=== PATIENT | male | born 1940 | race Caucasian/White ===

== ENCOUNTER 2021-12-13 01:01 | Inpatient (IN) | payer OTHER, SELFPAY ==
--- OUTSIDE RECORDS SUMMARY | 2021-12-13 01:04 | XMS REPORT | Continuity of Care Document ---
:1940 Author Organization [facility] t Address [address] [place] [address] Care Team Providers Name Role Phone GC_BAHC_Todd_J Attending Clinician Unavailable Yan_Qing Attending Clinician Unavailable AMBREEN_FARHANA Attending Clinician Unavailable GC_BAHVikki_Todd_J Admitting Clinician Unavailable Yan_W Admitting Clinician Unavailable AMBREEN_DENTONA Admitting Clinician Unavailable Payers Payer Name Policy Type Policy Number Effective Date Expiration Date [employer] - [id number] 2021 MEDICA (MEDICARE 00:00:00 REPLACEMENT HMO) [facility] [id number] (MEDICARE REPLACEMENT/[employer] - PPO) Problems This patient has no known problems. Allergies, Adverse Reactions, Alerts This patient has no known allergies or adverse reactions. Medications This patient has no known medications. Procedures This patient has no known procedures. Encounters Start End Encounter Admission Attending Care Care Encounter Source Date/Time Date/Time Type Type Clinicians Facility Department ID 2021-12-07 2021-12-07 Outpatient GC_BAHC_Tod PRIV PRIV [id number] [facility] 00:00:00 00:00:00 d_J [id number] Medica l 2021-11-26 2021-11-26 [place] [facility] [id number] 10:05:00 10:05:00 [place] [address] [facility] 2021-11-16 2021-11-16 Outpatient Yan_W MMG MMG [id number] [place] 00:00:00 00:00:00 [facility] 2021-10-05 2021-10-05 Outpatient AMBREEN_KALEE IADELFINA [facility] [id number] [place] 00:00:00 00:00:00 [place] 0729 [facility] h Program Results This patient has no known results.
[2021-12-13] MEDS ORDERED: NA CHLORIDE 0.9% 1,000 ML ONE (01:15)
[2021-12-13 02:10] LABS: Absolute Lymphocytes (CBC) 1.1 K/uL (0.7-4.9); Hematocrit 32.7 % (39.6-49.0); MCV 88.6 fL (80-100); MPV 8.6 fL (7.6-11.3)
[2021-12-13 02:27] LABS: Magnesium 2.5 mg/dL (1.8-2.4); Potassium 3.6 mmol/L (3.5-5.1); Troponin High Sensitivity 20.5 pg/mL (<58.9)
--- NOTE | 2021-12-13 03:40 | EDPHYS ---
Physician Documentation [facility] Name: Rodolfo Olivo Age: 81 yrs Sex: Male : 1940 Arrival Date: 12/13/2021 Time: 01:06 Bed 2 Private MD: ED Physician Ramirez Boss HPI: 12/13 05:00 This 81 yrs old Male presents to ER via EMS with complaints of Shortness of breath. 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 Patient denies chest pain at this time. Patient endorses right jaw pain. Patient states his pain is a 10/10 described as throbbing. Patient denies fevers or chills. Historical: - Allergies: 01:26 cefepime; vc1 01:26 PENICILLINS; vc1 - PMHx: 01:26 carcinoma in situ of larynx; osteoarthritis; vc1 - PSHx: 01:26 G tube; tracheostomy; vc1 - Immunization history:: Adult Immunizations up to date. - Social history:: Smoking status: unknown. ROS: 05:00 Constitutional: Negative for fever, and chills. ENT: Negative for injury, pain, and ms3 discharge, Neck: Negative for injury, pain, and swelling, Cardiovascular: Negative for chest pain, and palpitations. Abdomen/GI: Negative for abdominal pain, nausea, vomiting, diarrhea, and constipation, MS/Extremity: Negative for injury and deformity, Skin: Negative for injury, rash, and discoloration, Psych: Negative for depression, anxiety, suicide ideation, homicidal ideation, and hallucinations. 05:00 Respiratory: Positive for shortness of breath. 05:00 All other systems are negative. Exam: 01:50 ECG was reviewed by the Attending Physician. ms3 05:00 Constitutional: This is a well developed, well nourished patient who is awake, alert, ms3 and in no acute distress. Head/Face: Normocephalic, atraumatic. Neck: Trachea midline, no cervical lymphadenopathy. Supple, full range of motion without nuchal rigidity, or vertebral point tenderness. No Meningismus. Chest/axilla: Normal chest wall appearance and motion. Nontender with no deformity. Cardiovascular: Regular rate and rhythm with a normal S1 and S2. No gallops, murmurs, or rubs. Normal PMI, no JVD. No pulse deficits. Respiratory: Lungs have equal breath sounds bilaterally, clear to auscultation and percussion. No rales, rhonchi or wheezes noted. No increased work of breathing, no retractions or nasal flaring. Abdomen/GI: Soft, non-tender, with normal bowel sounds. No distension or tympany. No guarding or rebound. No evidence of tenderness throughout. Skin: Warm, dry with normal turgor. Normal color with no rashes, no lesions, and no evidence of cellulitis. 05:00 Abdomen/GI: PEG in place without surrounding erythema or drainage. 05:00 ENT: Trach in place. ms3 Vital Signs: 01:23 BP 125 / 109; Pulse 107; Resp 15; Temp 98.4; Pulse Ox 100% ; Weight 91.17 kg; Height 71 vc1 in. (180.34 cm); 04:17 BP 148 / 106; Pulse 114; Resp 16; Pulse Ox 100% on R/A; vc1 07:28 BP 110 / 58; Pulse 110; Resp 22; Pulse Ox 100% ; mb9 07:50 BP 135 / 88; Pulse 134; Resp 26; Pulse Ox 100% ; mb9 01:23 Body Mass Index 28.03 (91.17 kg, 180.34 cm) vc1 07:28 Oxygen via tracheostomy mb9 07:50 100% via tracheostomy with humidified oxygen mb9 MDM: 01:13 Patient medically screened. ms3 05:00 Differential Diagnosis KS vs PNA vs COVID vs CHF. Data reviewed: vital signs, nurses ms3 notes. Data interpreted: cardiac monitor: rate is 108 beats/min, rhythm is atrial fibrillation, with no ectopy, Interpretation: atrial fibrillation, tachycardia. Counseling: I had a detailed discussion with the patient and/or guardian regarding: the historical points, exam findings, and any diagnostic results supporting the discharge/admit diagnosis, lab results, radiology results, the need for further work-up and treatment in the hospital. ED course: Case discussed with FAITH Peter, and she accepts patient on behalf of Dr Varma. All questions answered. 12/13 01:14 Order name: Basic Metabolic Panel ms3 12/13 01:14 Order name: CBC with Diff ms3 12/13 01:14 Order name: Magnesium ms3 12/13 01:14 Order name: NT PRO-BNP ms3 12/13 01:14 Order name: Troponin HS ms3 12/13 02:12 Order name: CBC with Automated Diff; Complete Time: 02:45 EDMS 12/13 02:28 Order name: Basic Metabolic Panel; Complete Time: 02:45 EDMS 12/13 02:28 Order name: Troponin High Sensitivity; Complete Time: 02:45 EDMS 12/13 02:28 Order name: NT PRO-BNP; Complete Time: 02:45 EDMS 12/13 02:28 Order name: Magnesium; Complete Time: 02:45 EDMS 12/13 03:05 Order name: SARS-COV-2 RT PCR (Document "Date of Onset" if Symptomatic) vc1 12/13 03:05 Order name: COVID-19 SARS RT PCR (Document "Date of Onset" if Symptomatic) bb 12/13 04:42 Order name: SARS-COV-2 RT PCR; Complete Time: 06:39 EDMS 12/13 07:30 Order name: Glucose, Ancillary Testing EDMS 12/13 01:14 Order name: XRAY Chest (1 view) ms3 12/13 01:14 Order name: EKG; Complete Time: 01:15 ms3 12/13 01:14 Order name: Cardiac monitoring; Complete Time: 01:40 ms3 12/13 01:14 Order name: EKG - Nurse/Tech; Complete Time: 02:01 ms3 12/13 01:14 Order name: IV Saline Lock; Complete Time: 01:40 ms3 12/13 01:14 Order name: Labs collected and sent; Complete Time: 01:40 ms3 12/13 01:14 Order name: O2 Per Protocol; Complete Time: 01:39 ms3 12/13 01:14 Order name: O2 Sat Monitoring; Complete Time: 01:39 ms3 12/13 06:48 Order name: XRAY Chest (1 view) vc1 12/13 08:28 Order name: RAD EDMS EC:50 Rate is 111 beats/min. Rhythm is irregularly irregular. QRS [place] is Normal. Clinical ms3 impression: A fib with rvr. Interpreted by me. Reviewed by me. Administered Medications: 01:39 Drug: NS 0.9% 1000 ml Route: IV; Rate: 1000 ml; Site: left antecubital; bb 03:58 Drug: Ativan (LORazepam) 0.5 mg Route: IVP; Site: left antecubital; vc1 08:00 Drug: fentaNYL (PF) 25 mcg Route: IVP; Site: right upper arm; mb9 08:04 Follow up: Response: Anxiety decreased mb9 08:24 Not Given (Physician Discretion): amiodarone 900 mg, D5W 500 ml IVPB at 1 mg/min mb9 continuous; for 6 hrs, then change to 0.5 mg/min Disposition Summary: 12/13/21 03:40 Hospitalization Ordered Hospitalization Status: Inpatient Admission ms3 Provider: Rick Varma ms3 Condition: Stable ms3 Problem: new ms3 Symptoms: are unchanged ms3 Bed/Room Type: Standard ms3 Location: Intensive Care Unit(12/13/21 06:54) eb1 Room Assignment: -(12/13/21 06:54) eb Diagnosis - Heart failure, unspecified ms3 - Tachycardia, unspecified ms3 - Anemia, unspecified ms3 - Unspecified atrial fibrillation ms3 Forms: - Medication Reconciliation Form ms3 - SBAR form ms3 Signatures: Dispatcher [employer] EDLuciana Rios RN RN Priscilla Hope RN RN eb1 Ramirez Boss DO DO ms3 Danae Mcmahon RN RN vc1 Nirmala Fitzgerald PAWildaC PABrandon sb4 Glory Dent RN RN mb9 Corrections: (The following items were deleted from the chart) 03:55 03:40 Telemetry/MedSurg (Inpatient) ms3 eb1 03:55 03:40 ms3 eb1 06:54 03:55 [facility] ER HOLD eb1 eb1 06:54 03:55 ERHOLD- eb1 eb1
--- NOTE | 2021-12-13 03:40 | ER ---
Nurse's Notes [facility] Name: Rodolfo Olivo Age: 81 yrs Sex: Male : 1940 Arrival Date: 12/13/2021 Time: : Bed 2 Private MD: Diagnosis: Heart failure, unspecified;Tachycardia, unspecified;Anemia, unspecified;Unspecified atrial fibrillation Presentation: 12/13 01:23 Chief complaint: EMS states: "We were called out for SOB when we arrived they said no vc1 he had right sided jaw discomfort.". Coronavirus screen: Vaccine status: At this time, the client does not indicate any symptoms associated with coronavirus-19. Ebola Screen: No symptoms or risks identified at this time. Initial Sepsis Screen: Does the patient meet any 2 criteria? HR > 90 bpm. No. Patient's initial sepsis screen is negative. Does the patient have a suspected source of infection? No. Patient's initial sepsis screen is negative. Risk Assessment: Do you want to hurt yourself or someone else? Patient reports no desire to harm self or others. Onset of symptoms was December 13, 2021 at 00:25. 01:23 Method Of Arrival: EMS: [facility] vc1 01:23 Acuity: NARCISO 3 vc1 Triage Assessment: 01:26 General: Appears in no apparent distress. uncomfortable, Behavior is cooperative. Pain: vc1 Denies pain. EENT: Oral mucosa is dry. Poor dentition noted. Neuro: Level of Consciousness is awake, alert, obeys commands, Oriented to person, place, time, situation, Appropriate for age. Cardiovascular: Patient's skin is warm and dry. Respiratory: Reports cough that is labored breathing Airway is patent via trache Respiratory effort is even, unlabored, Respiratory pattern is regular, symmetrical, Sputum is thick, clear blood streaked, the patient has mild shortness of breath. GI: PEG tube in place, clamped. Site clean. : No deficits noted. Derm: No deficits noted. Musculoskeletal: No deficits noted. Historical: - Allergies: : cefepime; vc1 01:26 PENICILLINS; vc1 - PMHx: :26 carcinoma in situ of larynx; osteoarthritis; vc1 - PSHx: :26 G tube; tracheostomy; vc1 - Immunization history:: Adult Immunizations up to date. - Social history:: Smoking status: unknown. Screenin:28 Abuse screen: Denies threats or abuse. Nutritional screening: No deficits noted. vc1 Tuberculosis screening: No symptoms or risk factors identified. Fall Risk None identified. Assessment: 01:30 Reassessment: See triage assessment. vc1 04:00 Reassessment: Patient and/or family updated on plan of care and expected duration. Pain vc1 level reassessed. Pt stating he can't breath, oxygen saturation 100%, RT called to provide suctioning. Patient states symptoms have not improved. 07:00 General: Appears comfortable, Behavior is Difficult to arouse . mb9 07:00 Pain: Unable to use pain scale. Does not appear to understand pain scale. Neuro: Level mb9 of Consciousness is Opens eyes to painful stimuli. Cardiovascular: Heart tones S1 S2 present Rhythm is atrial fibrillation with rapid ventricular response. Respiratory: Airway via trache Trachea midline Respiratory effort is labored, Respiratory pattern is tachypnea Breath sounds are coarse bilaterally. GI: Abdomen is round PEG tube in place, clamped. : No signs and/or symptoms were reported regarding the genitourinary system. EENT: Oral mucosa is dry. Tongue is dry and swollen. Derm: Skin Skin is Skin is pink, warm \\T\\ dry. Wound noted right foot and left foot Other: Dressing noted to wounds on 12/11/21 Decubitus located on right and left buttocks. Right is stage II and left is stage I. Musculoskeletal: Range of motion: intact in all extremities. 07:26 Reassessment: Dr. Varma at bedside. Verbal order to hold amiodarone until he consults mb9 cardiology.. 07:38 Reassessment: Report given to admitting nurse, Piedad. . mb9 07:50 Reassessment: Pt now awake and unable to follow commands. Nonverbal, agitated, and mb9 attempting to get out of bed. Dr. Varma notified. Dr. Varma at bedside. RT at bedside suctioning pt. . Vital Signs: 01:23 BP 125 / 109; Pulse 107; Resp 15; Temp 98.4; Pulse Ox 100% ; Weight 91.17 kg; Height 71 vc1 in. (180.34 cm); 04:17 BP 148 / 106; Pulse 114; Resp 16; Pulse Ox 100% on R/A; vc1 07:28 BP 110 / 58; Pulse 110; Resp 22; Pulse Ox 100% ; mb9 07:50 BP 135 / 88; Pulse 134; Resp 26; Pulse Ox 100% ; mb9 01:23 Body Mass Index 28.03 (91.17 kg, 180.34 cm) vc1 07:28 Oxygen via tracheostomy mb9 07:50 100% via tracheostomy with humidified oxygen mb9 ED Course: 01:06 Patient arrived in ED. bb 01:06 Ramirez Boss DO is Attending Physician. ms3 01:23 Danae Mcmahon RN is Primary Nurse. vc1 01:26 Triage completed. vc1 01:28 Arm band placed on left wrist. vc1 01:28 Patient has correct armband on for positive identification. Bed in low position. Call vc1 light in reach. Side rails up X2. Client placed on continuous cardiac and pulse oximetry monitoring. NIBP monitoring applied. 01:30 Initial lab(s) drawn, by ia, sent to lab. Inserted saline lock: 18 gauge in left bb antecubital area, using aseptic technique. Blood collected. 03:39 Rick Varma MD is Hospitalizing Provider. ms3 05:41 Accessed peripheral vein via ultrasound, utilizing dynamic ultrasound technique as6 powerglide midline 18g 10 cm to right upper arm using hospital protocol with good blood return, flushes easily using Clean \\T\\ dry. Dressing intact. Good blood return. Flushes easily. 07:14 Report received from JASVIR Fink. mb9 07:48 Primary Nurse role handed off by Danae Mcmahon RN jl7 07:55 No provider procedures requiring assistance completed. mb9 07:55 Patient admitted, IV remains in place. mb9 08:22 Glory Dent RN is Primary Nurse. mb9 Administered Medications: 01:39 Drug: NS 0.9% 1000 ml Route: IV; Rate: 1000 ml; Site: left antecubital; bb 03:58 Drug: Ativan (LORazepam) 0.5 mg Route: IVP; Site: left antecubital; vc1 08:00 Drug: fentaNYL (PF) 25 mcg Route: IVP; Site: right upper arm; mb9 08:04 Follow up: Response: Anxiety decreased mb9 08:24 Not Given (Physician Discretion): amiodarone 900 mg, D5W 500 ml IVPB at 1 mg/min mb9 continuous; for 6 hrs, then change to 0.5 mg/min Medication: 01:28 VIS not applicable for this client. vc1 Outcome: 03:40 Decision to Hospitalize by Provider. ms3 07:50 Admitted to ICU accompanied by nurse, via stretcher, with oxygen, on monitor, with mb9 chart, Report called to JASVIR Herbert 07:50 Condition: stable 07:50 Instructed on the need for admit. 08:38 Patient left the ED. mb9 Signatures: Luciana Saldana, RN RN bb Junaid Prado RN RN jl7 Ramirez Boss, DO DO ms3 Wally Alba, RN RN as6 Danae Mcmahon RN RN vc1 Glory Dent, RN RN mb9
[2021-12-13] MEDS ORDERED: LORazepam 2 MG/ML VIAL ONE ×2 (03:54→05:48)
[2021-12-13] MEDS ORDERED: ALBUTEROL 2.5 MG/3 ML NEB SOL ONE (04:08)
[2021-12-13] MEDS ORDERED: IPRATROPIUM BROM 0.5MG/2.5ML ONE (04:08)
--- NOTE | 2021-12-13 04:10 | P.HP ---
Certification for Inpatient Patient admitted to: Inpatient With expected LOS: >2 Midnights Patient will require the following post-hospital care: None Practitioner: I am a practitioner with admitting privileges, knowledge of patient current condition, hospital course, and medical plan of care. 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 Patient was seen in this ED earlier this evening for a similar problem, was deep suctioned by RT, improved, and discharged back to [facility]. He comes back tonight with continuing shortness of breath. He is saturating appropriately upon arrival, non tachypneic. EKG shows afib RVR. BNP 5000. Chest xray negative. He was given 1L fluid and 0.5 mg ativan. ED provider wishes to admit patient for further management. Allergies cefepime Allergy (Verified 12/13/21 04:39) Anaphylaxis Penicillins Allergy (Verified 12/13/21 04:39) Anaphylaxis Home medications list reviewed: Yes - Past Medical/Surgical History Diabetic: No -: Laryngeal Mass -: Insulin Dependent Type 2 Diabetes -: Hypertension -: Congestive Heart Failure -: Atrial Fibrillation -: G Tube -: Tracheostomy Psychosocial/ Personal History: Patient lives at [facility]. - Family History Family History: Reviewed- Non-Contributory - Social History Smoking Status: Unknown if ever smoked Alcohol use: No CD- Drugs: No Caffeine use: No Place of Residence: Shelter Review of Systems Respiratory: Shortness of Breath, Sputum Physical Examination - Physical Exam General: Alert, In no apparent distress, Mild distress HEENT: PERRLA, EOMI, Sclerae nonicteric Neck: Supple, Other (Tracheostomy) Respiratory: Clear to auscultation bilaterally, Normal air movement Cardiovascular: Regular rate/rhythm, Normal S1 S2 Gastrointestinal: Normal bowel sounds, No tenderness Musculoskeletal: No tenderness Integumentary: No rashes Neurological: Normal strength at 5/5 x4 extr, Normal tone, Sensation intact - Studies Laboratory Data (last 24 hrs) 12/13/21 01:30: WBC 10.80, Hgb 10.9 L, Hct 32.7 L, Plt Count 351 12/13/21 01:30: Sodium 137, Potassium 3.6, BUN 28 H, Creatinine 1.27, Glucose 194 H, Magnesium 2.5 H Assessment and Plan - Problems (Diagnosis) (1) Respiratory distress Current Visit: Yes Status: Acute (2) Congestive heart failure Current Visit: Yes Status: Chronic Qualifiers: Heart failure type: unspecified Heart failure chronicity: acute on chronic Qualified Code(s): I50.9 - Heart failure, unspecified (3) Type 2 diabetes mellitus Current Visit: Yes Status: Chronic Qualifiers: Diabetes mellitus senior living insulin use: with senior living use Diabetes mellitus complication status: with hyperglycemia Qualified Code(s): E11.65 - Type 2 diabetes mellitus with hyperglycemia; Z79.4 - exterminator helper termite (current) use of insulin (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 He is very anxious. Ativan PRN -Going in and out of afib RVR. IV metoprolol given in ED -Pulmonology consult -ACHS accu checks with mild sliding scale insulin -Resume home diet via G tube -Echocardiogram ordered -Monitor and replete electrolytes per protocol -Reconcile and continue home medications -Home eliquis for VTE prophylaxis -Full code Discharge Plan: Shelter Plan to discharge in: Greater than 2 days - Advance Directives Does patient have a Living Will: No Does patient have a Durable POA for Healthcare: No - Code Status/Comfort Care Code Status Assessed: Yes (Full) Critical Care: No Time Spent Managing Pts Care (In Minutes): 50
[2021-12-13] MEDS ORDERED: METOPROLOL TARTRATE 5 MG/5 ML INJ IV STA ×3 (04:31→06:59)
[2021-12-13] MEDS ORDERED: ALBUTEROL 2.5 MG/3 ML NEB SOL NEB PRN ×2 (04:40→15:00)
[2021-12-13] MEDS ORDERED: ONDANSETRON 4 MG/2 ML VIAL IV PRN (04:40)
[2021-12-13] MEDS ORDERED: METOPROLOL TARTRATE 5 MG/5 ML INJ IV ONE ×2 (04:47→06:55)
[2021-12-13] MEDS: LORazepam 2 MG/ML VIAL IV PRN ×2 (04:58→06:03)
[2021-12-13 06:05] VITALS: BMI 28.0
[2021-12-13] MEDS ORDERED: AMIODARONE IN DEXTROSE,ISO-OSM 360 MG/200 ML BAG IV ONE (07:21)
[2021-12-13] MEDS ORDERED: FENTANYL CITR 100 MCG/2 ML ONE (07:58)
--- NOTE | 2021-12-13 08:27 | RAD REPORT ---
EXAM DESCRIPTION: RAD - Chest Single View - 12/13/2021 6:56 am CLINICAL HISTORY: SOB Chest pain. COMPARISON: Chest Single View dated 12/13/2021 FINDINGS: Portable technique limits examination quality. Mild interstitial pulmonary opacities are present bilaterally which may represent pulmonary edema. Th e heart is mildly enlarged. Trace right pleural effusion. No displaced fractures.Tracheostomy tube no sarah with its tip above the irineo. IMPRESSION: Mild CHF.
[2021-12-13] MEDS ORDERED: DEXMEDETOMIDINE HCL 200 MCG in NA CHLORIDE 0.9% 98 ML IV SCH (09:00)
[2021-12-13] MEDS ORDERED: APIXABAN 2.5 MG TABLET FT SCH (09:00)
[2021-12-13] MEDS ORDERED: ENOXAPARIN 40 MG/0.4 ML SQ SCH (09:00)
[2021-12-13] MEDS: INSULIN -REGULAR HUMAN 50 UNIT/0.5 ML ML SQ SCH ×2 (09:02→11:30)
[2021-12-13] MEDS ORDERED: NA CHLORIDE 0.9% 250 ML IV ONE (10:55)
[2021-12-13] MEDS ORDERED: NA CHLORIDE 0.9% 1,000 ML IV SCH (11:00)
[2021-12-13] MEDS ORDERED: FENTANYL CITR 100 MCG/2 ML IV ONE (12:15)
[2021-12-13] MEDS: IPRATROPIUM BROM 0.5MG/2.5ML NEB SCH ×2 (12:24→14:54)
[2021-12-13] MEDS: ALBUTEROL 2.5 MG/3 ML NEB SOL IH SCH ×3 (12:24→14:54)
[2021-12-13] MEDS ORDERED: HALOPERIDOL LACT 5 MG/ML INJ IV PRN (12:25)
--- NOTE | 2021-12-13 12:26 | P.CNS ---
Date of Consult: 12/13/21 Reason for Consult: Severe agitation respiratory distress Chief Complaint: Respiratory Distress History of Present Illness: Patient is 81 years of age he has a history of laryngeal cancer s/p tracheostomy PEG tube metabolic syndrome admitted with respiratory distress is now DNR and is very agitated difficult to control started having some shortness of breath started desatted came in with A. fib Allergies cefepime Allergy (Verified 12/13/21 04:39) Anaphylaxis Penicillins Allergy (Verified 12/13/21 04:39) Anaphylaxis - Past Medical/Surgical History Diabetic: No -: Laryngeal Mass -: Insulin Dependent Type 2 Diabetes -: Hypertension -: Congestive Heart Failure -: Atrial Fibrillation -: G Tube -: Tracheostomy Psychosocial/ Personal History: Patient lives at [facility]. - Social History Smoking Status: Unknown if ever smoked Alcohol use: No CD- Drugs: No Caffeine use: No [facility] Review of Systems 10-point ROS is otherwise unremarkable Physical Examination Temp Pulse Resp BP Pulse Ox 97.1 F 113 H 29 H 95/63 93 12/13/21 11:15 12/13/21 11:15 12/13/21 12:17 12/13/21 11:15 12/13/21 12:17 General: Moderate distress Neck: Supple Respiratory: Expiratory wheezes Cardiovascular: No edema, Irregular heart rate/rhythm Gastrointestinal: Normal bowel sounds Musculoskeletal: No clubbing, No contractures Laboratory Data (last 24 hrs) 12/13/21 01:30: WBC 10.80, Hgb 10.9 L, Hct 32.7 L, Plt Count 351 12/13/21 01:30: Sodium 137, Potassium 3.6, BUN 28 H, Creatinine 1.27, Glucose 194 H, Magnesium 2.5 H - Problems (1) Respiratory distress Current Visit: Yes Status: Acute Plan: Patient is 81 years of age [facility] resident 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
--- NOTE | 2021-12-13 12:56 | RAD REPORT ---
EXAM DESCRIPTION: XR Chest, 1 View CLINICAL HISTORY: Shortness of breath TECHNIQUE: Frontal view of the chest. COMPARISON: XR Chest dated 12/06/2021 FINDINGS: Lungs: Unremarkable. No consolidation. Pleural space: Unremarkable. No pneumothorax. Heart: Unremarkable. No cardiomegaly. Mediastinum: Unremarkable. Bones/joints: Unremarkable. Vasculature: Thoracic aortic atherosclerosis. Tubes, lines and devices: Tracheostomy tube remains in place. IMPRESSION: No acute disease. Electronically signed by: Britany Altamirano MD 12/13/2021 3:28 AM CDT Due to temporary technical issues with the PACS/Fluency reporting system, reports are being signed by the in house radiologists without review as a courtesy to insure prompt reporting. The interpreting radiologist is fully responsible for the content of the report.
[2021-12-13] MEDS ORDERED: METHYLPREDNISOLONE 40 MG INJ IV SCH (13:00)
[2021-12-13 14:13] VITALS: TEMP 97.5
--- NOTE | 2021-12-13 14:53 | EKG ---
Test Date: 2021-12-13 Test Time: 01:50:45 Director Title: MEASUREMENT RESULTS: Intervals: Rate: 111 [place]: QRSD: 84 QT: 342 QTc: 465 [place]: P: IL: QRS: -13 T: -13 INTERPRETIVE STATEMENTS: Atrial fibrillation with rapid ventricular response Nonspecific ST and T wave abnormality Abnormal ECG No previous ECG available for comparison Electronically Signed On 12-13-21 14:52:54 CDT by Ben Florez
[2021-12-13] MEDS ORDERED: AMIODARONE HCL 150 MG in D5W 100 ML IV STA (15:10)
[2021-12-13] MEDS ORDERED: AMIODARONE HCL 900 MG in Dextrose 5%-Water 482 ML IV SCH (16:00)
[2021-12-13 16:14] VITALS: O2SAT 100
[2021-12-13 17:18] VITALS: BP 40/27
--- NOTE | 2021-12-13 17:22 | CON ---
Date of Consultation: 12/13/2021 Reason For Consultation: Atrial fibrillation with rapid ventricular response. History Of Present Illness: This is an 81-year-old male with history of laryngeal mass, status post tracheostomy in place. Has atrial fibrillation, congestive heart failure, diabetes, hypertension, pr esented with respiratory distress. He had a good suctioning done at the first visit to the ER, did b chun, than sent back to the facility where he came from; however, came back with distress again, hea rt rate was fast, responded to metoprolol. At the present time, he is still in AFib, running between 90 and 130 beats per minute. The patient is sleeping and has obvious obstruction in his upper airwa y. Past Medical History: As outlined above in HPI. Medications: Refer to reconciliation sheet for detailed list. Allergies: PENICILLIN AND CEFEPIME. Family History: No premature coronary artery disease or cancer. Social History: Does not drink or use any drugs. Ex-smoker. Review of Systems: All systems reviewed and they were negative except for what mentioned in HPI. Physical Examination: Vital Signs: Reviewed. Head and Neck: Pupils are equal, reactive to light. Intact eye movements. No JVD. No cervical lym phadenopathy. Neck is supple. Thyroid is not enlarged. Has tracheostomy in place. Lungs: Decreased breathing sounds with wheezing. No accessory muscle use or muscle retraction. Heart: Irregularly irregular. No extra sounds. Abdomen: Soft, nontender. Bowel sounds positive. No organomegaly. No masses or hernia. No rigidi ty or rebound. Extremities: No clubbing or cyanosis. Intact pulses. Skin: No rash. Neurologic: Alert, awake. Moving all extremities. No acute focal deficits appreciated. Lymph Nodes: No cervical or axillary lymphadenopathy. Investigations: His BUN is 78, creatinine 1.27. White blood count is 10.8, hemoglobin is 10.9. Assessment And Recommendations: 1.Atrial fibrillation. Rate is fast. To load with amiodarone 150 mg over 10 minutes, then 1 mg per minute for 6 hours and then 0.5 mg per minute for 16 hours, then switch to oral after that. 2.Respiratory distress due to obstruction at the larynx level. The patient was asleep when I saw hi m and he was having significant obstruction causing limitation of air flow likely was causing his sym ptoms. Recommend ENT evaluation for possible palliative management to the local tumor that he has. /DARIANA Voice ID: [id number] Report ID: [id number]
--- NOTE | 2021-12-14 07:56 | ECHO ---
HEIGHT: 5 ft 11 in WEIGHT: 200 lb 15.927 oz DATE OF STUDY: 12/13/[address]: Nirmala Fitzgerald 2-DIMENSIONAL: YES M.MODE: YES DOPPLER: YES COLOR FLOW: YES TDS: NO PORTABLE: YES DEFINITY: NO BUBBLE STUDY: NO DIAGNOSIS: CONGESTIVE HEART FAILURE CARDIAC HISTORY: CATHERIZATION: SURGERY: PROSTHETIC VALVE: PACEMAKER: MEASUREMENTS (cm) DIASTOLIC (NORMALS) SYSTOLIC (NORMALS) IVSd 1.1 (0.6-1.2) LA Diam 4.2 (1.9-4.0) LVEF 50% LVIDd 4.0 (3.5-5.7) LVIDs 3.3 (2.0-3.5) %FS 17% LVPWd 1.1 (0.6-1.2) Ao Diam 3.4 (2.0-3.7) 2 DIMENSIONAL ASSESSMENT: RIGHT ATRIUM: NORMAL LEFT ATRIUM: ENLARGED RIGHT VENTRICLE: NORMAL LEFT VENTRICLE: TRICUSPID VALVE: MITRAL VALVE: PULMONIC VALVE: NORMAL AORTIC VALVE: SCLEROSIS PERICARDIAL EFFUSION: NONE AORTIC ROOT: NORMAL LEFT VENTRICULAR WALL MOTION: ATRIAL FIBRILLATION. DOPPLER/COLOR FLOW: SEE BELOW. COMMENTS: NORMAL LEFT VENTRICULAR EJECTION FRACTION 50-60%. ATRIAL FIBRILLATION. MODERATE TRICUSPID REGURGITATION. MILD MITRAL REGURGITATION. LEFT ATRIAL ENLARGEMENT. TECHNOLOGIST: Jus VELASCO
--- NOTE | 2021-12-18 15:22 | CON ---
Date of Consultation: 12/13/2021 Chief Complaint: Shortness of breath/airway obstruction. History Of Present Illness: The patient presented initially to the emergency room on 12/12/2021 with a dislodged tracheostomy tube. The emergency room physician placed a non-cuffed tracheostomy tube 7 .5 size back into the airway and the patient was sent back to the senior living and he was doing well, but the following day he started having an episode of recalcitrant atrial fibrillation. He was plac ed into the intensive care unit and I was consulted for further evaluation. Of note, the patient has a history of squamous cell carcinoma involving the larynx in which he decided against treating with either radiation chemo or surgery. Upon arrival to bedside, the patient's oxygen saturations were in the high 40s to low 50s and he was nonverbal and sedated. Examination of the neck revealed a well-f ormed stoma with no evidence of false track. There was no evidence of trauma associated with the tra cheostomy tube replacement. He also had a tracheostomy tube that the cuff was not inflated and I did not see a cuff on the tube. It appeared that the tracheostomy tube was in a good position and I did not see any mucus plugs. Rest of exam deferred. Allergies: CEFEPIME AND PENICILLIN. Past Medical History: Squamous cell carcinoma of the larynx, insulin-dependent type 2 diabetes, hype rtension, congestive heart failure, atrial fibrillation, tracheostomy tube for respiratory failure [facility] squamous cell carcinoma of the larynx, PEG tube for nutrition. Social History: Unknown. Review of Systems: As stated in the HPI. Unable to obtain rest of review of systems secondary to sedation. Physical Examination: The patient is in moderate distress and actually proceeded to go into respiratory arrest during my vi sit today. I stayed with nursing staff and Dr. Varma presented to the patient's bedside shortly there after. Laboratory Data: Chest x-ray was examined and I agree that the tracheostomy tube was in place and th e airway below the tube was patent, was slightly deviated to the right, but again it was non-obstruct ed according to the x-ray and my exam. Diagnoses: 1.Atrial fibrillation. 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 Plan: Dr. Varma is aware of the patient's status and the patient did during my visit to the [facility]; however, it was not due to airway obstruction from the trach, was definitely intact and patent. KD/MODL Voice ID: [id number] Report ID: [id number]
== END 2021-12-13 20:18 | disposition expired | DRG 310 ==
LOC: ER 01:01 → ERHOLD 04:35 → 3RD-ICU 07:54
PROVIDERS: ADMIT Hospitalist; ATTEND Hospitalist
DX: I48.0 Paroxysmal atrial fibrillation (principal); D64.9 Anemia, unspecified; F41.9 Anxiety disorder, unspecified; I11.0 Hypertensive heart disease with heart failure; I50.9 Heart failure, unspecified; E11.65 Type 2 diabetes mellitus with hyperglycemia; J38.6 Stenosis of larynx; R00.0 Tachycardia, unspecified; R06.03 Acute respiratory distress; Z66 Do not resuscitate; Z79.4 Long term (current) use of insulin; Z88.0 Allergy status to penicillin; Z93.0 Tracheostomy status; Z88.1 Allergy status to other antibiotic agents; Z79.01 Long term (current) use of anticoagulants; Z85.21 Personal history of malignant neoplasm of larynx; Z20.822 Contact with and (suspected) exposure to COVID-19
CPT/HCPCS: 36415; 71045; 80048; 82947; 83605; 83735; 83880; 84484; 85025; 93005; 93306; 94640; 94760; 99285; J0282; J1630; J1815; J2920; J3010; J7030; J7050; J7060; U0003